=== PATIENT | female | born 1975 | race Caucasian/White ===

== ENCOUNTER 2021-11-23 16:21 | Outpatient (CLI) | payer BC | END 2021-11-23 16:22 | disposition home or self-care (01) | LOC: SCSMRI 16:21 | PROVIDERS: ATTEND Family Medicine | DX: M54.16 Radiculopathy, lumbar region (principal) | CPT/HCPCS: 72100; 72148 ==

== ENCOUNTER 2021-12-19 12:34 | Outpatient (CLI) | payer BC | END 2021-12-19 12:35 | disposition home or self-care (01) | LOC: BICMAMMO 12:34 | PROVIDERS: ATTEND Family Medicine | DX: Z12.31 Encounter for screening mammogram for malignant neoplasm of breast (principal); Z85.828 Personal history of other malignant neoplasm of skin | CPT/HCPCS: 77063; 77067 ==

== ENCOUNTER 2022-01-12 15:40 | Outpatient (CLI) | payer BC | END 2022-01-12 15:41 | disposition home or self-care (01) | LOC: BICULT 15:40 | PROVIDERS: ATTEND Urology | DX: N39.46 Mixed incontinence (principal); N39.0 Urinary tract infection, site not specified | CPT/HCPCS: 76770 ==

== ENCOUNTER 2022-03-13 14:25 | Outpatient (CLI) | payer BC | END 2022-03-13 14:26 | disposition home or self-care (01) | LOC: MRI 14:25 | PROVIDERS: ATTEND Family Medicine | DX: G44.89 Other headache syndrome (principal) | CPT/HCPCS: 70553 ==

== ENCOUNTER 2023-02-06 13:32 | Outpatient (CLI) | payer OTHER | END 2023-02-06 13:33 | disposition home or self-care (01) | LOC: BICMAMMO 13:32 | PROVIDERS: ATTEND Family Medicine | DX: N64.4 Mastodynia (principal) | CPT/HCPCS: 77066; G0279 ==